=== PATIENT | male | born 1955 | race Caucasian/White ===

== ENCOUNTER 2016-10-04 17:50 | Emergency (ER) | payer BC ==
[2016-10-04 17:56] VITALS: BP 128/78
--- NOTE | 2016-10-04 18:43 | UC ---
Dwayne Farris Alok, scribed for Gerardo Silveira MD on 10/04/16 at 1808 . Ear Complaint HPI - HPI Summary HPI Summary: 61M presents to the [facility] with plugging of the right ear on and off for the last week. Pt has tried using a ear kit at home as well as ear drops last used at 1330 today. Pt denies rhinorrhea, fever, or chills. - History of Current Complaint Chief Complaint: UCEar Stated Complaint: RIGHT EAR COMPLAINT Time Seen by Provider: 10/04/16 18:02 Hx Obtained From: Patient Onset/Duration: Lasting Days, Still Present Severity Initially: Moderate Severity Currently: Moderate Aggravating Factors: Nothing Alleviating Factors: Nothing Associated Signs/Symptoms: Positive: Hearing Loss - Allergies/Home Medications Allergies/Adverse Reactions: Allergies Allergy/AdvReac Type Severity Reaction Status Date / Time No Known Allergies Allergy Verified 10/04/16 17:56 Home Medications: Home Medications Ibuprofen TAB* [Advil TAB*] PRN 10/04/16 [History] PMH/Surg Hx/FS Hx/Imm Hx - Surgical History Surgical History: Yes Surgery Procedure, Year, and Place: L knee surgery, meniscus 2012 - Family History Known Family History: Negative: Cardiac Disease, Hypertension, Diabetes - Social History Occupation: Employed Full-time Lives: With Family Alcohol Use: Rare Substance Use Type: None Smoking Status (MU): Current Every Day Smoker Type: Cigarettes Amount Used/How Often: 1-1.5 PPD Length of Time of Smoking/Using Tobacco: 45 years Have You Smoked in the Last Year: Yes Review of Systems Constitutional: Negative ENT: Other - right ear plugged All Other Systems Reviewed And Are Negative: Yes Physical Exam Triage Information Reviewed: Yes Appearance: Well-Appearing, No Pain Distress Vital Signs: Initial Vital Signs Temp 97.8 F 10/04/16 17:53 Pulse 96 10/04/16 17:53 Resp 16 10/04/16 17:53 BP 128/78 10/04/16 17:53 Pulse Ox 97 10/04/16 17:53 Vital Signs Reviewed: Yes Eyes: Positive: Other: - EOMI, DIANELYS ENT: Positive: Other: - Right ear cerumen impacted. Left ear normal. Neck: Positive: Supple, Nontender Respiratory: Positive: Lungs clear, Normal breath sounds Cardiovascular: Positive: RRR Abdomen Description: Positive: Nontender, Soft Bowel Sounds: Positive: Present Musculoskeletal Exam: Normal Musculoskeletal: Positive: Strength Intact, ROM Intact Neurological Exam: Normal Neurological: Positive: Other: - A&Ox3, Sensory/Motor intact Psychological: Positive: Other: - affect/mood appropriate Skin: Positive: Other - warm, dry, reflects adequate perfusion Ear Complaint Course/Dx - Course Course Of Treatment: Pt medications reviewed this visit. MOST OF THE WAX WAS REMOVED BY IRRIGATION HERE. EAR CANAL IS MACERATED SO RX CORTISPORIN OTIC. - Differential Dx/Diagnosis Provider Diagnoses: RIGHT CERUMEN IMPACTION Discharge - Discharge Plan Condition: Stable Disposition: HOME Prescriptions: Carbamide Peroxide 6.5% OTIC* [DEBROX 6.5% Otic*] 5 drop RIGHT EAR BID #1 bottle Neomyc/Polym/HC 1% OTIC SUSP* [Cortisporin Otic Susp 1%*] 4 drop RIGHT EAR QID # 1 btl Patient Education Materials: Cerumen Impaction (ED) Referrals: Nazario Marroquin MD [Primary Care Provider] - Additional Instructions: FOLLOW UP WITH YOUR DOCTOR. GET RE EVALUATED FOR ANY WORSENING OF YOUR CONDITION OR QUESTIONS OR CONCERNS. The documentation as recorded by the Dwayne chowdhury Alok accurately reflects the service I personally performed and the decisions made by me, Gerardo Silveira MD.
== END 2016-10-04 19:21 | disposition home or self-care (01) ==
LOC: UCEAST 17:50
DX: H61.21 Impacted cerumen, right ear (principal); F17.210 Nicotine dependence, cigarettes, uncomplicated
CPT/HCPCS: 99213; G0463

== ENCOUNTER 2018-03-29 14:31 | Emergency (ER) | payer BC ==
[2018-03-29 15:00] VITALS: BP 107/84
--- NOTE | 2018-03-29 17:21 | UC ---
Lower Extremity/Ankle HPI - HPI Summary HPI Summary: Patient is a 63-year-old male presenting to the ED with pain to the right heel x approximately 4 days. He states he has a history of calluses to the left. He denies any known injury or trauma to the right heel. He states he walks on a hard surface for approximately 10 hours per day and has not purchased a new para shoes in several years. He does see a backend python developer him however not recently. Denies any fevers, sweats, chills. He states he feels otherwise well. He remains ambulatory and states pain is only with ambulation and is currently rated a 3/10, constant and aching. He has never had a history of plantar fasciitis, plantar warts or heel spurs. He denies walking more frequently than normal. - History of Current Complaint Chief Complaint: UCLowerExtremity Stated Complaint: SKIN COMPLAINT Time Seen by Provider: 03/29/18 15:20 Hx Obtained From: Patient Onset/Duration: Sudden Onset Severity Initially: Moderate Severity Currently: Moderate Pain Intensity: 1 Pain Scale Used: 0-10 Numeric Aggravating Factor(s): Standing, Ambulation Alleviating Factor(s): Rest Able to Bear Weight: Yes - Allergies/Home Medications Allergies/Adverse Reactions: Allergies Allergy/AdvReac Type Severity Reaction Status Date / Time No Known Allergies Allergy Verified 03/29/18 15:00 Home Medications: Home Medications Acetaminophen [Eq 8Hr Arthritis Pain Rel] 1,300 mg PO DAILY PRN 03/29/18 [ History Confirmed 03/29/18] PMH/Surg Hx/FS Hx/Imm Hx Previously Healthy: Yes - Surgical History Surgical History: Yes Surgery Procedure, Year, and Place: L knee surgery, meniscus 2012 - Family History Known Family History: Negative: Cardiac Disease, Hypertension, Diabetes - Social History Alcohol Use: Rare Substance Use Type: None Smoking Status (MU): Current Every Day Smoker Type: Cigarettes Amount Used/How Often: 1-1.5 PPD Length of Time of Smoking/Using Tobacco: 45 years Have You Smoked in the Last Year: Yes Household Exposure Type: Cigarettes Review of Systems All Other Systems Reviewed And Are Negative: Yes Constitutional: Positive: Negative Skin: Positive: Other - small .1cm area to the R heel possibly reprenting a small callous or FB - no erythema surrounding Respiratory: Positive: Negative Cardiovascular: Positive: Negative Neurovascular: Positive: Negative Musculoskeletal: Positive: Other: Neurological: Positive: Negative Is Patient Immunocompromised?: Yes Physical Exam Triage Information Reviewed: Yes Appearance: Well-Appearing, Well-Nourished Vital Signs: Initial Vital Signs Temp 99.1 F 03/29/18 14:56 Pulse 70 03/29/18 14:56 Resp 18 03/29/18 14:56 BP 107/84 03/29/18 14:56 Pulse Ox 97 03/29/18 14:56 Eye Exam: Normal Neck exam: Normal Neck: Positive: Supple, No Lymphadenopathy Respiratory Exam: Normal Respiratory: Positive: Chest non-tender, Lungs clear Cardiovascular Exam: Normal Cardiovascular: Positive: RRR Bowel Sounds: Positive: Present Musculoskeletal Exam: Normal Musculoskeletal: Positive: Strength Intact Psychological: Positive: Normal Response To Family Skin: Positive: Other - small .1cm area to the R heel possibly reprenting a small callous or FB - no erythema surrounding Lower Extremity Course/Dx - Course Course Of Treatment: On physical examination, there is a very small hard nodule which appears to be just beneath the skin of the left heel measuring only 0.1 cm in length. There is pain directly on palpation to the small area, however no pain when palpating the plantar aspect of the foot. Also no discomfort over the area of concern seen on x-ray (below.) Discussed with patient this could be a very small foreign body or a callus. On x-ray the impression is there is a faint linear calcification overlying the expected location of the plantar fascia could be seen in the setting of plantar fasciitis. I have encouraged him to follow back up with his backend python developer for further workup. - Differential Dx/Diagnosis Provider Diagnosis: Pain, heel Discharge - Sign-Out/Discharge Documenting (check all that apply): Patient Departure All imaging exams completed and their final reports reviewed: Yes - Discharge Plan Condition: Stable Disposition: HOME Referrals: Nazario Marroquin MD [Primary Care Provider] - - Billing Disposition and Condition Condition: STABLE Disposition: Home
== END 2018-03-29 16:19 | disposition home or self-care (01) ==
LOC: UCEAST 14:31
DX: M79.671 Pain in right foot (principal); F17.210 Nicotine dependence, cigarettes, uncomplicated
CPT/HCPCS: 99211; G0463

== ENCOUNTER 2018-05-16 14:19 | Emergency (ER) | payer BC ==
[2018-05-16 15:01] LABS: Influenza A Molecular NEGATIVE (Negative); Influenza B Molecular NEGATIVE (Negative)
[2018-05-16] MEDS ORDERED: NS 0.9% 1000 ML* 2,000 ML IV ONE (17:50)
[2018-05-16 18:13] LABS: ABS Basophils 0 10^3/ul (0-0.2); ABS Eosinophils 0 10^3/ul (0-0.6); ABS Monocytes 0.7 10^3/ul (0-0.8); ABS Neutrophils 2.3 10^3/ul (1.5-7.7); ABS Nucleated RBC 0 10^3/ul; Eosinophil % 0.1 %; Hematocrit 40 % (42-52); Hemoglobin 13.2 g/dl (14.0-18.0); Lymphocyte % 39.1 %; Mean Corpuscular HGB Conc 33 g/dl (31-36); Mean Corpuscular Hemoglobin 28 pg (27-31); Mean Corpuscular Volume 86 fL (80-94); Mean Platelet Volume 8.9 fL (7.4-10.4); Nucleated Red Blood Cells % 0.1; Platelet Count 117 10^3/ul (150-450); Red Blood Count 4.65 10^6/ul (4.00-5.40); Red Cell Distribution Width 14 % (10.5-15)
[2018-05-16 18:33] LABS: Albumin 3.8 g/dL (3.2-5.2); Albumin/Globulin Ratio 1.3 (1-3); BUN/Creatinine Ratio 15.7 (8-20); C Reactive Protein 68.06 mg/L (<8.01); Calcium 8.5 mg/dL (8.6-10.3); EGFR African American 105.1 (>60); EGFR Non-African American 86.9 (>60); Potassium 3.9 mmol/L (3.5-5.0); Total Bilirubin 0.8 mg/dL (0.2-1.0); Total Protein 6.8 g/dL (6.4-8.9)
[2018-05-16] MEDS ORDERED: Ketorolac INJ* 30 MG/ML 1 ML VIAL IV PUSH ONE (18:44)
--- NOTE | 2018-05-16 18:45 | ED ---
GI/ HPI - HPI Summary HPI Summary: 63-year-old male presents with abdominal pain, cough, and diarrhea for the past couple weeks. He states he's had this illness recurrently since [place]. States his and him have been passing it back and forth. He states occasional fevers. He admits occasional shortness breath. No sore throat. No headache. No sinus congestion. He states his pain is left lower quadrant. He denies a history of diverticulitis. He denies any blood in his stool. Did not eat anything different. He states cough is productive. He denies any history asthma or COPD. Denies any chest pain. No urinary symptoms. - History of Current Complaint Chief Complaint: EDNauseaVomitDiarrh Time Seen by Provider: 05/16/18 17:44 Stated Complaint: CHILLS/FEVER/DIZZINESS/GENERAL Pain Intensity: 4 - Allergy/Home Medications Allergies/Adverse Reactions: Allergies Allergy/AdvReac Type Severity Reaction Status Date / Time No Known Allergies Allergy Verified 03/29/18 15:00 PMH/Surg Hx/FS Hx/Imm Hx Endocrine/Hematology History: Denies: Hx Diabetes, Hx Thyroid Disease Cardiovascular History: Denies: Hx Hypertension Respiratory History: Denies: Hx Asthma, Hx Chronic Obstructive Pulmonary Disease (COPD) GI History: Denies: Hx Ulcer - Surgical History Surgery Procedure, Year, and Place: L knee surgery, meniscus 2013 Infectious Disease History: No Infectious Disease History: Denies: Hx Hepatitis, Hx Human Immunodeficiency Virus (HIV), Traveled Outside the [place] in Last 30 Days - Family History Known Family History: Negative: Cardiac Disease, Hypertension, Diabetes - Social History Alcohol Use: None Substance Use Type: Reports: None Smoking Status (MU): Heavy Every Day Tobacco Smoker Type: Cigarettes Amount Used/How Often: 1-1.5 PPD Length of Time of Smoking/Using Tobacco: 45 years Have You Smoked in the Last Year: Yes Review of Systems Negative: Fever Negative: Chest Pain Positive: Shortness Of Breath, Cough Positive: Abdominal Pain, Diarrhea. Negative: Vomiting, Nausea Positive: Myalgia All Other Systems Reviewed And Are Negative: Yes Physical Exam Triage Information Reviewed: Yes Vital Signs On Initial Exam: Initial Vitals Temp Pulse Resp BP Pulse Ox 97.4 F 82 14 127/73 96 05/16/18 14:24 05/16/18 14:24 05/16/18 14:24 05/16/18 14:24 05/16/18 14:24 Vital Signs Reviewed: Yes Appearance: Positive: Well-Appearing Skin: Positive: Warm, Dry Head/Face: Positive: Normal Head/Face Inspection Eyes: Positive: Normal, EOMI, DIANELYS, Conjunctiva Clear ENT: Positive: Normal ENT inspection, Pharynx normal, TMs normal Respiratory/Lung Sounds: Positive: Clear to Auscultation, Breath Sounds Present Cardiovascular: Positive: Normal, RRR Abdomen Description: Positive: Soft, Other: - tenderness LLQ Bowel Sounds: Positive: Present Musculoskeletal: Positive: Normal Neurological: Positive: Normal Psychiatric: Positive: Normal Diagnostics - Vital Signs Vital Signs Temp Pulse Resp BP Pulse Ox 05/16/18 18:00 82 93 05/16/18 17:43 82 119/73 05/16/18 17:42 74 97 05/16/18 17:15 97.2 F 81 18 126/71 96 05/16/18 14:24 97.4 F 82 14 127/73 96 - Laboratory Lab Results: Lab Results 05/16/18 05/16/18 05/16/18 Range/Units 14:49 18:06 18:06 WBC 5.0 (3.5-10.8) 10^3/ul RBC 4.65 (4.00-5.40) 10^6/ul Hgb 13.2 L (14.0-18.0) g/dl Hct 40 L (42-52) % MCV 86 (80-94) fL MCH 28 (27-31) pg MCHC 33 (31-36) g/dl RDW 14 (10.5-15) % Plt Count 117 L (150-450) 10^3/ul MPV 8.9 (7.4-10.4) fL Neut % (Auto) 46.0 % Lymph % (Auto) 39.1 % [place] % (Auto) 14.5 % Eos % (Auto) 0.1 % Baso % (Auto) 0.3 % Absolute Neuts (auto) 2.3 (1.5-7.7) 10^3/ul Absolute Lymphs (auto) 2.0 (1.0-4.8) 10^3/ul Absolute Monos (auto) 0.7 (0-0.8) 10^3/ul Absolute Eos (auto) 0 (0-0.6) 10^3/ul Absolute Basos (auto) 0 (0-0.2) 10^3/ul Absolute Nucleated RBC 0 10^3/ul Nucleated RBC % 0.1 Sodium 137 (135-145) mmol/L Potassium 3.9 (3.5-5.0) mmol/L Chloride 103 (101-111) mmol/L Carbon Dioxide 27 (22-32) mmol/L Anion Gap 7 (2-11) mmol/L BUN 14 (6-24) mg/dL Creatinine 0.89 (0.67-1.17) mg/dL Est GFR ( Amer) 105.1 (>60) Est GFR (Non-Af Amer) 86.9 (>60) BUN/Creatinine Ratio 15.7 (8-20) Glucose 92 (70-100) mg/dL Lactic Acid (0.5-2.0) mmol/L Calcium 8.5 L (8.6-10.3) mg/dL Total Bilirubin 0.80 (0.2-1.0) mg/dL AST 35 (13-39) U/L ALT 28 (7-52) U/L Alkaline Phosphatase 47 (34-104) U/L C-Reactive Protein 68.06 H (<8.01) mg/L Total Protein 6.8 (6.4-8.9) g/dL Albumin 3.8 (3.2-5.2) g/dL Globulin 3.0 (2-4) g/dL Albumin/Globulin Ratio 1.3 (1-3) Lipase 23 (11.0-82.0) U/L Influenza A (Rapid) Negative (Negative) Influenza B (Rapid) Negative (Negative) 05/16/18 Range/Units 18:06 WBC (3.5-10.8) 10^3/ul RBC (4.00-5.40) 10^6/ul Hgb (14.0-18.0) g/dl Hct (42-52) % MCV (80-94) fL MCH (27-31) pg MCHC (31-36) g/dl RDW (10.5-15) % Plt Count (150-450) 10^3/ul MPV (7.4-10.4) fL Neut % (Auto) % Lymph % (Auto) % [place] % (Auto) % Eos % (Auto) % Baso % (Auto) % Absolute Neuts (auto) (1.5-7.7) 10^3/ul Absolute Lymphs (auto) (1.0-4.8) 10^3/ul Absolute Monos (auto) (0-0.8) 10^3/ul Absolute Eos (auto) (0-0.6) 10^3/ul Absolute Basos (auto) (0-0.2) 10^3/ul Absolute Nucleated RBC 10^3/ul Nucleated RBC % Sodium (135-145) mmol/L Potassium (3.5-5.0) mmol/L Chloride (101-111) mmol/L Carbon Dioxide (22-32) mmol/L Anion Gap (2-11) mmol/L BUN (6-24) mg/dL Creatinine (0.67-1.17) mg/dL Est GFR ( Amer) (>60) Est GFR (Non-Af Amer) (>60) BUN/Creatinine Ratio (8-20) Glucose (70-100) mg/dL Lactic Acid 0.7 (0.5-2.0) mmol/L Calcium (8.6-10.3) mg/dL Total Bilirubin (0.2-1.0) mg/dL AST (13-39) U/L ALT (7-52) U/L Alkaline Phosphatase (34-104) U/L C-Reactive Protein (<8.01) mg/L Total Protein (6.4-8.9) g/dL Albumin (3.2-5.2) g/dL Globulin (2-4) g/dL Albumin/Globulin Ratio (1-3) Lipase (11.0-82.0) U/L Influenza A (Rapid) (Negative) Influenza B (Rapid) (Negative) Result Diagrams: 05/16/18 18:06 05/16/18 18:06 Lab Statement: Any lab studies that have been ordered have been reviewed, and results considered in the medical decision making process. - Radiology chest Radiology Interpretation Completed By: ED Physician Summary of Radiographic Findings: pneumonia - CT abd CT Interpretation Completed By: Radiologist Summary of CT Findings: 1. Mild bibasilar lung infiltrates suggestive of developing pneumonia or. pneumonitis. 2. Thickened gallbladder wall with possible stone suggest with at least chronic. cholecystitis. Consider ultrasound correlation. 3. Mild prostatic enlargement and bladder wall thickening. Re-Evaluation - Re-Evaluation First Eval Re-Evaluation Time: 19:04 Change: Improved Comment: feeling better after fluids, he believes abdominal pain is from coughing Second Eval Re-Evaluation Time: 20:59 Comment: discussed results no pain in RUQ so will not get u/s at this time. urine no infection. GIGU Course/Dx - Course Course Of Treatment: 63-year-old male presents with abdominal pain, cough, and diarrhea for the past couple weeks. He admits occasional shortness breath. No sore throat. No headache. No sinus congestion. He states his pain is left lower quadrant. He states cough is productive. He denies any history asthma or COPD. on exam lungs CTA. tenderness LLQ. wbc normal. crp elevated. electrolytes normal. chest xray read by me as NAD. CT shows pneumonia. gallbladder thickening but patient is not tender in RUQ. will treat with azithromycin. patient understand and agrees with plan. - Diagnoses Differential Diagnoses - Male: Gastroenteritis (Bacterial), Gastroenteritis ( Viral), Urinary Tract Infection Provider Diagnoses: Pneumonia, Diarrhea Discharge - Sign-Out/Discharge Documenting (check all that apply): Patient Departure - Discharge Plan Condition: Good Disposition: HOME Prescriptions: Azithromycin TAB* [Zithromax TAB (Z-JEFFREY) 250 mg #6 tabs] 250 mg PO DAILY #4 tab Patient Education Materials: Pneumonia (ED) Referrals: Nazario Marroquin MD [Primary Care Provider] - Additional Instructions: Take azithromycin once a day for 4 days Drink plenty of fluids Take tyenlol every 6 hours as needed for fever Return to ED if develop any new or worsening symptoms - Billing Disposition and Condition Condition: GOOD Disposition: Home
[2018-05-16] MEDS ORDERED: Iohexol 300* (CONTRAST) 10 ML SDV IV ONE (19:24)
[2018-05-16 20:12] LABS: Urine Appearance Clear; Urine Bacteria Absent (Absent); Urine Bilirubin Negative (Negative); Urine Blood Negative (Negative); Urine Color Amber; Urine Glucose Negative (Negative); Urine Ketones Negative (Negative); Urine Nitrite Negative (Negative); Urine Protein Negative (Negative); Urine Red Blood Cell Trace(0-2/hpf) (Absent); Urine Specific Gravity 1.024 (1.010-1.030); Urine Urobilinogen Negative (Negative); Urine White Blood Cell Trace(0-5/hpf) (Absent)
[2018-05-16] MEDS ORDERED: NS 0.9% 1000 ML* 1,000 ML IV ONE (20:24)
[2018-05-16] MEDS ORDERED: Azithromycin TAB* 250 MG PO ONE (20:54)
[2018-05-16 22:24] VITALS: BP 123/78
== END 2018-05-16 22:23 | disposition home or self-care (01) ==
LOC: ED 14:19
DX: J18.9 Pneumonia, unspecified organism (principal); R19.7 Diarrhea, unspecified; R05 Cough; R06.02 Shortness of breath; F17.210 Nicotine dependence, cigarettes, uncomplicated
CPT/HCPCS: 36415; 71046; 74177; 80053; 81003; 83605; 83690; 85025; 86140; 87086; 96361; 96374; 99283; A9270-GY; J1885; Q9967